=== PATIENT | female | born 1985 | race Caucasian/White ===

== ENCOUNTER 2021-09-01 09:00 | Inpatient (IN) | payer OTHER ==
[2021-09-01 11:26] VITALS: BMI 36.3
[2021-09-01] MEDS ORDERED: morphine SULFATE/PF 1 MG/2 ML (2cc Syringe - QUVA) EP ONE (11:36)
[2021-09-01] MEDS ORDERED: ONDANSETRON 4 MG/2 ML VIAL IVPUSH PRN (11:36)
[2021-09-01] MEDS ORDERED: CITRIC ACID/SODIUM CITRATE 30 ML UNIT-DOSE CUP PO ONE (11:46)
[2021-09-01] MEDS ORDERED: ELECTROLYTE-148 SOLN 1,000 ML IV SCH (12:00)
[2021-09-01] MEDS ORDERED: OXYTOCIN 20 UNITS in 0.9% NS 20 UNIT/1,000 ML INFUS.BAG IV ONE (12:11)
[2021-09-01] MEDS ORDERED: DEXAMETHASONE SOD PHOSPHATE 4 MG/1 ML VIAL ONE (12:19)
[2021-09-01] MEDS ORDERED: ceFAZolin SODIUM 1 GM VIAL ONE ×2 (12:19)
[2021-09-01] MEDS ORDERED: KETOROLAC TROMETHAMINE 30 MG/1 ML VIAL ONE (12:19)
[2021-09-01] MEDS ORDERED: OXYTOCIN 10 UNITS/ML VIAL ONE ×2 (12:19)
[2021-09-01] MEDS ORDERED: ACETAMINOPHEN 325 MG TABLET (FP) PO PRN (14:27)
[2021-09-01] MEDS ORDERED: METHYLERGONOVINE MALEATE 0.2 MG/1 ML AMP IM PRN (14:27)
[2021-09-01 14:39] LABS: CORD BASE EXCESS -12.8 mmol/L (0-2); CORD HCO3 17.8 mmHg (20-29); CORD PCO2 60.6 mmHg (30-78); CORD pH 7.087 (7.14-7.44)
[2021-09-01 14:42] LABS: CORD HCO3 18.6 mmHg (20-29); CORD PCO2 71.7 mmHg (30-78); CORD pH 7.032 (7.14-7.44)
[2021-09-01] MEDS: OXYTOCIN 20 UNITS in 0.9% NS 20 UNIT/1,000 ML INFUS.BAG IV SCH (20:59)
[2021-09-02] MEDS ORDERED: oxyCODONE HCL 5 MG TABLET PO PRN ×2 (02:27)
[2021-09-02] MEDS: OXYTOCIN 20 UNITS in 0.9% NS 20 UNIT/1,000 ML INFUS.BAG IV SCH (05:40)
[2021-09-02 09:45] LABS: BASO % 0.3 % (0-2.0); EOS % 1.3 % (0-4.5); HEMATOCRIT 29.5 % (32.4-45.2); HEMOGLOBIN 9.9 GM/dL (10.7-15.3); MCH 28.3 pg (25.7-33.7); MCHC 33.4 g/dl (32.0-36.0); MEAN CELL VOLUME 84.7 fl (80-96); MEAN PLT VOLUME 8.9 fl (7.5-11.1); MONO % 4.3 % (3.8-10.2); NEUT % 75.1 % (42.8-82.8); PLATELET COUNT 262 10^3/uL (134-434); RBC 3.49 M/mm3 (3.60-5.2); RDW 13.2 % (11.6-15.6); WHITE BLOOD COUNT 9.8 K/mm3 (4.0-10.0)
[2021-09-02] MEDS: IBUPROFEN 600 MG TABLET (FP) PO PRN ×2 (10:04→16:52)
[2021-09-02] MEDS: SIMETHICONE 80 MG TAB.CHEW (FP) PO PRN (10:07)
[2021-09-02] MEDS ORDERED: BISACODYL 10 MG SUPP.RECT RC PRN (14:27)
[2021-09-03] MEDS: IBUPROFEN 600 MG TABLET (FP) PO PRN (00:16)
[2021-09-03] MEDS: SIMETHICONE 80 MG TAB.CHEW (FP) PO PRN (00:17)
[2021-09-03 10:19] VITALS: BP 119/81; PULSE 89; TEMP 97.5
== END 2021-09-03 16:30 | disposition home or self-care (01) | DRG 540 ==
LOC: JLDR 09:00 → J3W 15:42
PROVIDERS: ADMIT Family Medicine; ATTEND Family Medicine
PROC: 10D00Z1 Extraction of Products of Conception, Low, Open Approach (ICD-10-PCS; principal; 2021-09-01)
DX: O34.219 Maternal care for unspecified type scar from previous cesarean delivery (principal); O69.81X0 Labor and delivery complicated by cord around neck, without compression, not applicable or unspecified; Z3A.39 39 weeks gestation of pregnancy; Z37.0 Single live birth
CPT/HCPCS: 36415; 36600; 82803; 85025; 86780; 88307-TC

== ENCOUNTER 2023-09-06 03:11 | Observation (INO) | payer OTHER ==
[2023-09-06] MEDS ORDERED: ONDANSETRON 4 MG/2 ML VIAL ONE (03:51)
[2023-09-06] MEDS ORDERED: MAG HYDROX/AL HYDROX/SIMETH 30 ML UNIT-DOSE CUP ONE (03:51)
[2023-09-06] MEDS ORDERED: ACETAMINOPHEN INJECTION 100 ML IVPB ONE (03:51)
[2023-09-06] MEDS: ACETAMINOPHEN 1000 MG/100 ML BAG IVPB ONE (04:04)
[2023-09-06] MEDS: SODIUM CHLORIDE 0.9% 500 ML INFUS.BAG IV ONE (04:04)
[2023-09-06] MEDS: MAG HYDROX/AL HYDROX/SIMETH 30 ML UNIT-DOSE CUP PO ONE (04:04)
[2023-09-06] MEDS: ONDANSETRON 4 MG/2 ML VIAL IVPUSH ONE (04:04)
[2023-09-06] MEDS ORDERED: FAMOTIDINE 20 MG/50 ML IVPB 20 MG/50 ML MG IVPB SCH ×2 (04:05→10:00)
[2023-09-06] MEDS: FAMOTIDINE 20 MG/50 ML IVPB 20 MG/50 ML MG IVPB ONE (04:14)
[2023-09-06 04:21] LABS: BASO % 0.4 % (0-2.0); EOS % 4.7 % (0-4.5); HEMATOCRIT 36.9 % (32.4-45.2); HEMOGLOBIN 12.2 GM/dL (10.7-15.3); LYMPH % 22.3 % (8-40); MCH 26.9 pg (25.7-33.7); MEAN CELL VOLUME 81.6 fl (80-96); MEAN PLT VOLUME 8.7 fl (7.5-11.1); MONO % 5.9 % (3.8-10.2); NEUT % 66.7 % (42.8-82.8); PLATELET COUNT 309 10^3/uL (134-434); RBC 4.53 M/mm3 (3.60-5.2); RDW 16.3 % (11.6-15.6); WHITE BLOOD COUNT 7.7 K/mm3 (4.0-10.0)
[2023-09-06 04:44] LABS: POTASSIUM 5.7 mmol/L (3.5-5.1)
[2023-09-06 04:46] LABS: CALCIUM 9.1 mg/dL (8.5-10.1)
[2023-09-06 04:48] LABS: ALBUMIN 3.6 g/dl (3.4-5.0); BLOOD UREA NITROGEN 13.5 mg/dL (7-18)
[2023-09-06 04:50] LABS: CREATININE 0.9 mg/dL (0.55-1.3)
[2023-09-06 04:51] LABS: BILIRUBIN,TOTAL 3.6 mg/dL (0.2-1); TOT PROT 7.1 g/dl (6.4-8.2)
[2023-09-06 10:42] LABS: BILIRUBIN,DIRECT 0.9 mg/dL (0.0-0.2)
[2023-09-06] MEDS ORDERED: ONDANSETRON 4 MG/2 ML VIAL IVPUSH PRN (12:09)
[2023-09-06] MEDS ORDERED: PIPERACILLIN/TAZOB 3.375 GM 3.375 GM/50 ML BAG IVPB ONE (12:24)
[2023-09-06] MEDS: PIPERACILLIN/TAZOB 3.375 GM 3.375 GM in DEXTROSE 5%-WATER - 50 ML IVPB ONE (12:35)
[2023-09-06 13:00] LABS: BASO % 0.5 % (0-2.0); EOS % 5.5 % (0-4.5); HEMATOCRIT 38.4 % (32.4-45.2); HEMOGLOBIN 12.6 GM/dL (10.7-15.3); LYMPH % 27.2 % (8-40); MCH 26.8 pg (25.7-33.7); MCHC 32.8 g/dl (32.0-36.0); MEAN CELL VOLUME 81.8 fl (80-96); MEAN PLT VOLUME 8.4 fl (7.5-11.1); MONO % 5.5 % (3.8-10.2); NEUT % 61.3 % (42.8-82.8); PLATELET COUNT 302 10^3/uL (134-434); RDW 16.1 % (11.6-15.6); WHITE BLOOD COUNT 6.3 K/mm3 (4.0-10.0)
[2023-09-06 13:07] LABS: INR 0.99 (0.83-1.09); PROTHROMBIN TIME (PATIENT) 11.5 SEC (9.7-13.0)
[2023-09-06 13:15] LABS: POTASSIUM 4.2 mmol/L (3.5-5.1)
[2023-09-06 13:17] LABS: ALBUMIN 3.5 g/dl (3.4-5.0)
[2023-09-06 13:18] LABS: BLOOD UREA NITROGEN 9.8 mg/dL (7-18)
[2023-09-06] MEDS: INDOMETHACIN 50 MG RECTAL SUPPOSITORY PR ONE (13:20)
[2023-09-06 13:21] LABS: CREATININE 0.6 mg/dL (0.55-1.3)
[2023-09-06 13:22] LABS: BILIRUBIN,TOTAL 4.1 mg/dL (0.2-1); TOT PROT 7.1 g/dl (6.4-8.2)
[2023-09-06] MEDS: LACTATED RINGERS SOLUTION 1,000 ML/1,000 ML INFUS.BAG IV SCH ×3 (13:26→22:40)
[2023-09-06] MEDS ORDERED: FENTANYL CITRATE/PF 50 MCG/ML VIAL ONE (13:37)
[2023-09-06] MEDS ORDERED: ACETAMINOPHEN 1000 MG/100 ML BAG IVPB PRN (13:47)
[2023-09-06] MEDS: IOHEXOL 300 MG/ML INFUS..BTL IV ONE (14:15)
[2023-09-06 15:50] VITALS: BMI 31.5
[2023-09-06] MEDS: PIPERACILLIN/TAZOB 3.375 GM 3.375 GM in DEXTROSE 5%-WATER - 50 ML IVPB SCH (17:21)
[2023-09-07 09:04] LABS: BASO % 0.2 % (0-2.0); EOS % 0.7 % (0-4.5); HEMATOCRIT 32.8 % (32.4-45.2); HEMOGLOBIN 10.8 GM/dL (10.7-15.3); LYMPH % 24.1 % (8-40); MEAN CELL VOLUME 81.8 fl (80-96); MEAN PLT VOLUME 8.8 fl (7.5-11.1); MONO % 5.5 % (3.8-10.2); NEUT % 69.5 % (42.8-82.8); PLATELET COUNT 249 10^3/uL (134-434); WHITE BLOOD COUNT 7.4 K/mm3 (4.0-10.0)
[2023-09-07 09:42] LABS: TOT PROT 5.8 g/dl (6.4-8.2)
[2023-09-07 09:44] LABS: ALBUMIN 2.8 g/dl (3.4-5.0); BLOOD UREA NITROGEN 8.3 mg/dL (7-18)
[2023-09-07 09:46] LABS: BILIRUBIN,DIRECT 0.7 mg/dL (0.0-0.2)
[2023-09-07 09:47] LABS: CREATININE 0.6 mg/dL (0.55-1.3); PHOSPHOROUS 3.1 mg/dL (2.5-4.9)
[2023-09-07 09:50] LABS: BILIRUBIN,TOTAL 1.9 mg/dL (0.2-1)
[2023-09-07] MEDS: LACTATED RINGERS SOLUTION 1,000 ML/1,000 ML INFUS.BAG IV SCH (11:58)
[2023-09-07] MEDS: PIPERACILLIN/TAZOB 3.375 GM 3.375 GM in DEXTROSE 5%-WATER - 50 ML IVPB SCH ×2 (12:51→17:48)
[2023-09-08 08:03] LABS: BASO % 0.7 % (0-2.0); EOS % 3.3 % (0-4.5); HEMATOCRIT 33.6 % (32.4-45.2); HEMOGLOBIN 10.9 GM/dL (10.7-15.3); LYMPH % 33.8 % (8-40); MCH 26.8 pg (25.7-33.7); MCHC 32.5 g/dl (32.0-36.0); MEAN CELL VOLUME 82.4 fl (80-96); MEAN PLT VOLUME 8.5 fl (7.5-11.1); MONO % 5.8 % (3.8-10.2); NEUT % 56.4 % (42.8-82.8); PLATELET COUNT 257 10^3/uL (134-434); RBC 4.08 M/mm3 (3.60-5.2); RDW 16.5 % (11.6-15.6); WHITE BLOOD COUNT 7.2 K/mm3 (4.0-10.0)
[2023-09-08 08:19] LABS: INR 1.03 (0.83-1.09); POTASSIUM 4.1 mmol/L (3.5-5.1); PROTHROMBIN TIME (PATIENT) 11.9 SEC (9.7-13.0)
[2023-09-08 08:31] LABS: CALCIUM 9.1 mg/dL (8.5-10.1)
[2023-09-08 08:32] LABS: ALBUMIN 3.1 g/dl (3.4-5.0); MAGNESIUM 2.1 mg/dL (1.8-2.4)
[2023-09-08 08:35] LABS: CREATININE 0.8 mg/dL (0.55-1.3)
[2023-09-08 08:36] LABS: BILIRUBIN,TOTAL 1.6 mg/dL (0.2-1); TOT PROT 6.2 g/dl (6.4-8.2)
[2023-09-08] MEDS ORDERED: BUPIVACAINE HCL/PF 0.25% (2.5MG/ML) 10 ML VIAL ONE (14:17)
[2023-09-08] MEDS ORDERED: BUPIVACAINE HCL/PF 0.5% (5MG/ML) 10 ML VIAL ONE (14:37)
[2023-09-08] MEDS ORDERED: ROCURONIUM BROMIDE 50 MG/5 ML SYRINGE ONE (14:58)
[2023-09-08] MEDS ORDERED: PROPOFOL 20 ML ONE (14:58)
[2023-09-08] MEDS ORDERED: FENTANYL CITRATE/PF 50 MCG/ML VIAL ONE ×3 (15:00→17:19)
[2023-09-08] MEDS: cefOXitin SODIUM 2 GM VIAL (RESTRICTED TO ID) IVPB ONE (15:35)
[2023-09-08] MEDS ORDERED: NEOSTIGMINE METHYLSULFATE 0.5 MG/1 ML - 10 ML MDV ONE (16:25)
[2023-09-08] MEDS: BUPIVACAINE HCL/PF 0.5% (5 MG/ML) 30 ML VIAL IJ ONE (16:51)
[2023-09-08] MEDS ORDERED: oxyCODONE HCL 5 MG TABLET PO PRN (16:55)
[2023-09-08] MEDS ORDERED: ONDANSETRON 4 MG/2 ML VIAL IVPUSH PRN (17:01)
[2023-09-08] MEDS ORDERED: ACETAMINOPHEN INJECTION 100 ML IVPB ONE (17:04)
[2023-09-08] MEDS ORDERED: KETOROLAC TROMETHAMINE 30 MG/1 ML VIAL ONE (17:05)
[2023-09-08] MEDS: KETOROLAC TROMETHAMINE 30 MG/1 ML VIAL IVPUSH SCH (17:13)
[2023-09-08] MEDS: ACETAMINOPHEN 1000 MG/100 ML BAG IVPB ONE ×2 (17:13→19:11)
[2023-09-08] MEDS: LACTATED RINGERS SOLUTION 1,000 ML/1,000 ML INFUS.BAG IV SCH (17:14)
[2023-09-08 18:57] VITALS: RESP 20
[2023-09-08] MEDS: HEPARIN NA (PORCINE) 5,000 UNITS/ML 1ML VIAL SQ SCH (21:48)
[2023-09-08] MEDS: ACETAMINOPHEN 500 MG TABLET (FP) PO SCH (23:54)
[2023-09-09 07:42] LABS: INR 1.02 (0.83-1.09); PROTHROMBIN TIME (PATIENT) 11.5 SEC (9.7-13.0)
[2023-09-09 07:48] LABS: BASO % 0.2 % (0-2.0); EOS % 0.5 % (0-4.5); HEMOGLOBIN 11.6 GM/dL (10.7-15.3); LYMPH % 26.9 % (8-40); MCH 26.4 pg (25.7-33.7); MCHC 32.2 g/dl (32.0-36.0); MEAN CELL VOLUME 82.1 fl (80-96); MEAN PLT VOLUME 8.7 fl (7.5-11.1); NEUT % 65.4 % (42.8-82.8); PLATELET COUNT 268 10^3/uL (134-434); RBC 4.39 M/mm3 (3.60-5.2); RDW 15.8 % (11.6-15.6)
[2023-09-09 07:56] LABS: POTASSIUM 4.4 mmol/L (3.5-5.1)
[2023-09-09 07:58] LABS: ALBUMIN 3.1 g/dl (3.4-5.0); BLOOD UREA NITROGEN 11.1 mg/dL (7-18); CALCIUM 8.9 mg/dL (8.5-10.1)
[2023-09-09 08:01] LABS: CREATININE 0.7 mg/dL (0.55-1.3)
[2023-09-09 08:03] LABS: BILIRUBIN,TOTAL 1.4 mg/dL (0.2-1); TOT PROT 6.3 g/dl (6.4-8.2)
[2023-09-09] MEDS: LACTATED RINGERS SOLUTION 1,000 ML/1,000 ML INFUS.BAG IV SCH (09:23)
[2023-09-09 14:09] VITALS: BP 110/63; PULSE 63; TEMP 98.3
== END 2023-09-09 14:10 | disposition home or self-care (01) ==
LOC: JER 03:11 → UNDOADMOB 11:37 → JERBED 11:37 → INTOOBSV 11:37 → JERBED 13:19 → J8W 15:37 → JERBED 15:37 → J8W 09-07 13:40
PROVIDERS: ADMIT Internal Medicine; ATTEND Nurse Practitioner Family
PROC: 0FT44ZZ Resection of Gallbladder, Percutaneous Endoscopic Approach (ICD-10-PCS; 2023-09-06)
PROC: 3E033NZ Introduction of Analgesics, Hypnotics, Sedatives into Peripheral Vein, Percutaneous Approach (ICD-10-PCS; principal; 2023-09-07)
PROC: 3E023GC Introduction of Other Therapeutic Substance into Muscle, Percutaneous Approach (ICD-10-PCS; 2023-09-07)
PROC: 3E0337Z Introduction of Electrolytic and Water Balance Substance into Peripheral Vein, Percutaneous Approach (ICD-10-PCS; 2023-09-07)
PROC: 3E033GC Introduction of Other Therapeutic Substance into Peripheral Vein, Percutaneous Approach (ICD-10-PCS; 2023-09-07)
PROC: 0FCD8ZZ Extirpation of Matter from Pancreatic Duct, Via Natural or Artificial Opening Endoscopic (ICD-10-PCS; 2023-09-09)
PROC: BF181ZZ Fluoroscopy of Pancreatic Ducts using Low Osmolar Contrast (ICD-10-PCS; 2023-09-09)
PROC: XFJD8A7 Inspection of Pancreatic Duct using Single-use Duodenoscope, New Technology Group 7 (ICD-10-PCS; 2023-09-09)
DX: K80.20 Calculus of gallbladder without cholecystitis without obstruction (principal); K50.80 Crohn's disease of both small and large intestine without complications; R94.5 Abnormal results of liver function studies; R79.89 Other specified abnormal findings of blood chemistry; Z83.79 Family history of other diseases of the digestive system
CPT/HCPCS: 36415; 76000-TC-FY; 76705-TC; 80053; 82248; 83690; 83735; 84100; 84132; 84703; 85025; 85610; 86140; 86704; 86709; 86850; 86900; 86901; 87340; 87517; 87522; 88304-TC; 94760; 96361; 96365; 96367; 96372; 96375; 99285-25; G0378; J0131; J1644